=== PATIENT | female | born 1955 | race African-American/Black ===

== ENCOUNTER 2017-09-22 10:50 | Day surgery (SDC) | payer MEDICARE, OTHER ==
[~2017-09-22 10:50] MED LIST: LIDOCAINE 1% PF 30 ML VIAL.
[2017-09-22] MEDS ORDERED: BUPIVACAINE 0.5% 50 ML VIAL. (11:22)
[2017-09-22 11:25] LABS: ADD MAN DIFF? NO
[2017-09-22 11:33] LABS: BASO # 0.1 x10^3/uL (0.0-0.2); BASO % 1 % (0-3); EOS # 0.3 x10^3/uL (0.0-0.7); EOS % 3 % (0-3); HEMATOCRIT 42.2 % (36.0-47.0); HEMOGLOBIN 14.5 g/dL (12.0-15.5); LYMPH # 3.5 x10^3/uL (1.0-4.8); LYMPH % 41 % (24-48); MEAN CORPUSCULAR HEMOGLOBIN 32 pg (25-35); MEAN CORPUSCULAR HGB CONC 34 g/dL (31-37); MEAN CORPUSCULAR VOLUME 94 fL (79-100); MONO % 12 % (0-9); NEUT # 3.6 x10^3uL (1.8-7.7); NEUT % 43 % (31-73); PLATELET COUNT 281 x10^3/uL (140-400); RED BLOOD COUNT 4.48 x10^6/uL (3.50-5.40); RED CELL DISTRIBUTION WIDTH 13.2 % (11.5-14.5); WHITE BLOOD COUNT 8.5 x10^3/uL (4.0-11.0)
[2017-09-22 11:37] LABS: ANION GAP 6 (6-14); BLOOD UREA NITROGEN 15 mg/dL (7-20); CALCIUM 9.2 mg/dL (8.5-10.1); CARBON DIOXIDE 27 mmol/L (21-32); CHLORIDE 105 mmol/L (98-107); CREATININE 0.8 mg/dL (0.6-1.0); GFR 87.9; GLUCOSE 114 mg/dL (70-99); POTASSIUM 3.6 mmol/L (3.5-5.1); SODIUM 138 mmol/L (136-145)
[2017-09-22] MEDS ORDERED: LIDOCAINE 1%/EPI 1:100,000 20 ML VIAL. INJ (11:45)
[2017-09-22 11:48] LABS: BASE EXCESS ABG -1 mmol/L (-3-3); HCO3 ABG 23 mmol/L (21-28); PCO2 ABG 35 mmHg (35-46); PH ABG 7.43 (7.35-7.45); PO2 ABG 64 mmHg (65-108); SAT O2 ABG 93 % (92-99)
[2017-09-22 11:49] LABS: FIO2 ABG 21%
[2017-09-22] MEDS ORDERED: DEXAMETHASONE SOD PHOS 4 MG/ML VIAL (11:50)
[2017-09-22] MEDS: IV RINGERS,LACTATED 1000ML 1,000 ML IV (11:51)
[2017-09-22] MEDS ORDERED: fentaNYL PF VIAL 100 MCG/2 ML VIAL IV ×2 (12:00)
[2017-09-22] MEDS ORDERED: MIDAZOLAM HCL/PF 2 MG/2 ML VIAL. IV (12:00)
[2017-09-22] MEDS ORDERED: LIDOCAINE 1% PF 2 ML VIAL. ID (12:00)
[2017-09-22] MEDS ORDERED: fentaNYL PF VIAL 100 MCG/2 ML VIAL (12:16)
[2017-09-22] MEDS ORDERED: MIDAZOLAM HCL/PF 2 MG/2 ML VIAL. (12:17)
[2017-09-22] MEDS ORDERED: PROPOFOL 20 ML IV (12:27)
[2017-09-22] MEDS ORDERED: SEVOFLURANE 31 TO 60 MINUTES. IH (13:14)
[2017-09-22] MEDS: HYDROcodone/APAP 5/325MG 1 TAB TABLET PO (13:44)
== END 2017-09-22 14:19 | disposition home or self-care (01) ==
LOC: SURG 10:50
DX: M79.5 Residual foreign body in soft tissue (principal); F12.90 Cannabis use, unspecified, uncomplicated; Z90.81 Acquired absence of spleen; Z72.89 Other problems related to lifestyle; Z79.899 Other long term (current) drug therapy; W45.8XXA Other foreign body or object entering through skin, initial encounter; Y93.89 Activity, other specified; Y92.9 Unspecified place or not applicable
CPT/HCPCS: 20103; 36415; 36600; 80048; 82805; 85025; 87205; 88304; J0690; J1100; J2250; J2704; J3010; J3490

== ENCOUNTER → 2017-09-22 | Outpatient (CLI) | payer MEDICARE, OTHER ==
[2017-09-22] MEDS: GADOBUTROL 7.5 MMOL/7.5 ML VIAL IV (10:25)
== END | disposition home or self-care (01) ==
LOC: MRI 09:01
DX: G44.031 Episodic paroxysmal hemicrania, intractable (principal); M54.2 Cervicalgia; G25.81 Restless legs syndrome; M43.6 Torticollis; R20.0 Anesthesia of skin
CPT/HCPCS: 70553; 72156; A9585